=== PATIENT | male | born 1965 ===

== ENCOUNTER 2018-09-05 10:54 | Emergency (ER) | payer OTHER ==
[~2018-09-05] VITALS: Ht 172.7 cm; Wt 77.1 kg
[2018-09-05] MEDS ORDERED: PROVIGIL100 MG (11:05)
[2018-09-05] MEDS ORDERED: GABAPENTIN300 MG (11:05)
[2018-09-05] MEDS ORDERED: AMANTADINE100 MG (11:08)
[2018-09-05] MEDS ORDERED: CITALOPRAM10 MG/5 ML (11:09)
[2018-09-05] MEDS ORDERED: CLONAZEPAM0.5 MG (11:09)
[2018-09-05] MEDS ORDERED: POTASS CIT-SOD473 ML (11:09)
[2018-09-05] MEDS ORDERED: CITALOPRAM HBR10 MG (11:10)
[2018-09-05] MEDS ORDERED: BACLOFEN5 GM (11:10)
[2018-09-05] MEDS ORDERED: MYSOLINE50 MG (11:10)
== END 2018-09-05 13:19 | disposition home or self-care (01) ==
LOC: ER 10:54
DX: Z48.02 Encounter for removal of sutures (principal)